=== PATIENT | male | born 1950 | race African-American/Black ===

== ENCOUNTER 2020-10-04 04:26 | Observation (INO) | payer OTHER ==
[~2020-10-04] VITALS: Ht 180.3 cm; Wt 100.7 kg
[~2020-10-04 04:26] MED LIST: ALDACTONE25 MG PO; AMLODIPINE BESY10 MG PO; CARDURA4 MG PO; COZAAR 50 MG TA50 M2 PO; LIPITOR 20 MG T20 M1 PO; LYRICA 75 MG CA75 MG PO; MEDROLDOSEPACK PO; RITALIN10 MG PO
[2020-10-04 04:27] VITALS: BP 136/77
[2020-10-04] MEDS ORDERED: PROSCAR 5MG TABL5 M1 PO (04:33)
[2020-10-04] MEDS ORDERED: DULOXETINE HCL60 MG PO (04:33)
[2020-10-04] MEDS ORDERED: NORTRIPTYLINE H75 M1 PO (04:34)
[2020-10-04] MEDS ORDERED: IBUPROFEN 800800 M1 (04:34)
[2020-10-04 06:11] LABS: ABSOLUTE NEUTROPHILS 4.8 thou/uL (1.4-8.2); BASOPHILS 0.5 % (0.0-2.0); EOSINOPHILS 2.3 % (0.0-3.0); HEMOGLOBIN 13.9 gm/dL (14.0-18.0); LYMPHOCYTES 25.6 % (24.0-44.0); MCH 32.6 pg (26.0-34.0); MCHC 33.2 g/dL (28.0-37.0); MCV 98.2 fL (80.0-100.0); MONOCYTES 9.1 % (1.0-8.0); PLATELET COUNT 219 thou/uL (150-400); POLYS 62.5 % (36.0-66.0); RBC 4.27 mil/uL (4.50-6.00); RDW 14.8 % (10.5-14.5); WBC 7.7 thou/uL (4.0-11.0)
[2020-10-04 06:20] LABS: ANION GAP 9 mmol/L (7-16); BUN 13 mg/dL (7-18); CALCIUM 9.1 mg/dL (8.5-10.1); CHLORIDE 104 mmol/L (98-107); CO2 27 mmol/L (21-32); CREATININE 0.8 mg/dL (0.7-1.3); GLUCOSE 135 mg/dL (74-106); POTASSIUM 4.5 mmol/L (3.5-5.1); SODIUM 140 mmol/L (136-145)
[2020-10-04 06:31] LABS: ALBUMIN 3.4 g/dL (3.4-5.0); SGOT 41 U/L (15-37); SGPT 31 U/L (30-65); TOTAL BILIRUBIN 0.7 mg/dL (0.2-1.0); TOTAL PROTEIN 7.5 g/dL (6.4-8.2); TROPONIN-I <0.06 ng/mL (<0.06)
[2020-10-04 09:05] VITALS: BP 124/67
--- NOTE | 2020-10-04 09:52 | NUR ---
ATTEMPTED TO CALL REPORT. WAS TOLD NURSE WAS BUSY AND FOR ME TO CALL BACK IN 5 MIN.
[2020-10-04 09:55] VITALS: BP 130/59
[2020-10-04 10:29] VITALS: BP 143/90
[2020-10-04 11:07] LABS: CHOLESTEROL 142 mg/dL (<200); HDL CHOLESTEROL 48 mg/dL (>40); LDL CHOLESTEROL 76 mg/dL (<100); TRIGLYCERIDE 90 mg/dL (<150); TROPONIN-I <0.06 ng/mL (<0.06); VLDL 18 mg/dL (<40)
--- NOTE | 2020-10-04 11:29 | NUR ---
ASSUMED CARE OF PT AT 1030 THIS MORNING XFERRED FROM ER. PT WAS C/O DIZZINESS AND MENENDEZ. PT IS ADMITTED FOR OBSERVATION AND TELE DUE TO POSSIBLE STROKE S/S. PT IS A/OX4, SKIN INTACT, NO TENTING, W/D/ATR, EYES PERRLA WITH ACCOMIDATION. LUNGS ARE CLEAR IN ALL PAK, ABD SOFT NONTENDER WITH ACTIVE BOWEL SOUNDS, PT CAN AMBULATE WITHOUT ISSUE. NO COMPLAINTA AT THIS TIME. DISTAL PULSES ARE PRESENT AND STRONG. ASSESSMENTS OTHERWISE UNREMARKABLE. IV IN LEFT AC WITH NS AT 75ML/HR. CALL LIGHT AND OTHER NEEDS ARE PLACED WITHIN REACH.
[2020-10-04 20:02] VITALS: BP 146/78
--- NOTE | 2020-10-05 01:47 | NUR ---
PT CARE ASSUMED AT 1900 WITH AT BEDSIDE AT 1900.PT IS A/O X 4.PT IS UP WITH STANDBY ASSIST BECAUSE OF DIZZINESS.PT APPEAR TO BE IN NO ACUTE DISTRESS.NO PAIN,N/V/D TILL THIS POINT.WILL CONTINUE TO MONITOR
[2020-10-05 07:27] VITALS: BP 135/85
--- NOTE | 2020-10-05 08:13 | HC ---
[facility] [place] [address] CONSULTATION Name: JAISON WHEELER Room #: 454-P [facility] IN M.R.#: [id number] Admission: 10/04/20 Attend Phys: Denis Epstein MD Discharge: Date of : 54 Report #: [id number] THIS REPORT FOR: cc: Calderon Lopez Terry D. DO Park, Jin S. MD ~ DOC #: [id number] Bernard Khalil MD DATE OF SERVICE: 10/04/2020 CARDIOLOGY CONSULTATION INDICATION: Chest pain. HISTORY OF PRESENT ILLNESS: This is a 70-year-old gentleman with a history of hypertension and hyperlipidemia presenting with dizziness and chest discomfort. The patient apparently has a neck straightening device, which he uses for 15 minutes. On , after he uses his device, he stood up and felt dizzy. He did not pass out. Since then, he has had this dizziness feeling, seems to be worse with quick turning of the head. He also complains of a focal discomfort in the left upper chest area, nonradiating. There is no change with palpation over the area or deep inspiration. He denies any fever, chills, diarrhea or orthopnea. PAST MEDICAL HISTORY: Hypertension and hypercholesterolemia. Negative for diabetes. ALLERGIES: None. MEDICATIONS: At home include losartan 50 mg, amlodipine 10, Lipitor 20. SOCIAL HISTORY: Negative for tobacco use. FAMILY HISTORY: Negative for premature CAD. REVIEW OF SYSTEMS: A full 10-point review of systems performed. Only the pertinent positives and negatives described in the HPI. PHYSICAL EXAMINATION: VITAL SIGNS: Blood pressure is 140/90, heart rate is 78 beats per minute. GENERAL APPEARANCE: This is a well-developed, well-nourished male in no acute respiratory distress. HEENT: Normocephalic, atraumatic. Oral mucosa moist. NECK: Supple. LUNGS: CTA. HEART: Regular rate and rhythm, S1, S2 positive. [facility] [address] [place] [address] CONSULTATION Name: JAISON WHEELER Room #: 454-P [facility].#: [id number] Admission: 10/04/20 Attend Phys: Denis Epstein MD Discharge: Date of : 54 Report #: [id number] ABDOMEN: Soft, nontender. EXTREMITIES: No lower extremity edema, no cyanosis. ECG reveals sinus rhythm. LABORATORY DATA: Troponin is negative x3. ASSESSMENT AND PLAN: 1. Chest pain syndrome, the differential diagnosis includes ischemia, musculoskeletal. Three sets of troponin levels are negative. We will need eventual stress testing. 2. Dizziness, probable vertigo. Consider meclizine as per hospitalist. 3. Hypertension, continue with medications. 4. Hypercholesterolemia. Continue statin therapy. Bernard Khalil MD JP/PORTER <ELECTRONICALLY SIGNED> By: Bernard Khalil MD 10/05/20 0813 1130 2210 Bernard Khalil MD /kristie
--- NOTE | 2020-10-05 09:53 | NUR ---
ASSUMED PT CARE AROUND 0710. PT ALERT X ORIENTED X 4. ON ROOM AIR. IV LF AC/NS RUNNING AT 75MLS/HR. USES URINALS AT BEDSIDE AND WILL CALL IF HE NEEDS HELP GO TO BATHROOM. STAND BY ASST TO BATHROOM.ON TELE. FROM CARDIOLOGY VIEW POINT GOOD TO GO HOME. CALL LIGHT IN REACH. WILL CALL APPROP. WILL CONTINUE TO MONITOR.
[2020-10-05] MEDS ORDERED: MECLIZINE HCL25 M1 PO (12:34)
[2020-10-05] MEDS ORDERED: DIAZEPAM 2MG TAB2 MG PO (14:29)
[2020-10-05 14:33] VITALS: BP 135/85
--- NOTE | 2020-10-06 08:26 | EKG ---
[address] [place] [address] ELECTROCARDIOGRAM REPORT Name: JAISON WHEELER Room #: 454-P [facility] IN M.R.#: [id number] Admission: 10/04/20 Attend Phys: Denis Epstein MD Discharge: 10/05/20 Date of : 54 Report #: [id number] [facility] ED Test Date: 2020-10-04 Test Time: 04:39:16 Pat Name: JAISON WHEELER Department: Room: [facility] Gender: M [employer]: BECK : 1950 Requested By: Kendrick Carranza Order Number: [id number] MD: Bubba Kennedy Measurements Intervals [place] Rate: 74 P: 49 SD: 145 QRS: -19 QRSD: 95 T: 16 QT: 393 QTc: 436 Interpretive Statements Sinus rhythm Abnormal R-wave progression, early transition Inferior infarct, old Compared to ECG 11/28/2014 17:20:14 Inferior Q waves are now present Electronically Signed On 10-06-2020 8:25:56 CDT by Bubba Kennedy [email or web address] <ELECTRONICALLY SIGNED> By: Bubba Kennedy MD, [facility] 10/06/20 0825 0439 [id number] Bubba Kennedy MD, [facility] /EPI
== END 2020-10-05 14:55 | disposition home or self-care (01) ==
LOC: ER 04:26 → EROBS 09:05 → 4W 09:05
PROVIDERS: Emergency Medicine; ADMIT Hospitalist; ATTEND Hospitalist
DX: R42 Dizziness and giddiness (principal); R07.89 Other chest pain; I10 Essential (primary) hypertension; E78.5 Hyperlipidemia, unspecified; R55 Syncope and collapse; E78.00 Pure hypercholesterolemia, unspecified; Z79.899 Other long term (current) drug therapy
CPT/HCPCS: 10045

== ENCOUNTER 2020-10-20 23:23 | Emergency (ER) | payer OTHER ==
[~2020-10-20] VITALS: Ht 180.3 cm; Wt 97.5 kg
[~2020-10-20 23:23] MED LIST changes: +DIAZEPAM 2MG TAB2 MG PO; +DULOXETINE HCL60 MG PO; +IBUPROFEN 800800 M1; +MECLIZINE HCL25 M1 PO; +NORTRIPTYLINE H75 M1 PO; +PROSCAR 5MG TABL5 M1 PO
[2020-10-21] MEDS ORDERED: CEPHALEXIN500 MG PO (00:08)
[2020-10-21 00:20] VITALS: BP 149/97
== END 2020-10-21 00:22 | disposition home or self-care (01) ==
LOC: ER 23:23
DX: R04.0 Epistaxis (principal); I10 Essential (primary) hypertension; E78.00 Pure hypercholesterolemia, unspecified; G62.9 Polyneuropathy, unspecified; R09.81 Nasal congestion; Z79.899 Other long term (current) drug therapy